=== PATIENT | female | born 1970 | race Caucasian/White ===

== ENCOUNTER 2019-07-25 08:31 | Day surgery (SDC) | payer BC ==
[~2019-07-25 08:31] MED LIST: AMOX500 PO; AMOX875 PO; CEPH500 PO; CODBUTACEC PO; CRUTCH4 UD; HYDACE5 PO; LOPE2C PO; NAPR500 PO; Norco 5-325 Ta1 EACH PO; OXYACE5T PO; Ultram50 MG PO; Zofran Odt4 MG SL; Zofran Odt8 MG SL
== END 2019-07-25 22:55 | disposition home or self-care (01) ==
LOC: MOI MAM 08:31 → MOI US 09:00 → MOI MAM 09:00
DX: N60.01 Solitary cyst of right breast (principal)
CPT/HCPCS: 19000; 76942; 88108

== ENCOUNTER 2021-05-14 12:16 | Day surgery (SDC) | payer BC ==
[~2021-05-14] VITALS: Ht 175.3 cm; Wt 109.2 kg
--- NOTE | 2021-05-14 12:38 | NUR ---
History, Chart, Medications and Allergies reviewed before start of procedure. Patient confirms NPO status and agrees with scheduled surgery. Reports taking all of colon prep with clear results.
[2021-05-14] MEDS ORDERED: VITAMIN D325 MC3 PO (12:46)
[2021-05-14] MEDS ORDERED: MULTIPLE VITAM1 EACH PO (12:47)
[2021-05-14] MEDS ORDERED: ZINC15 PO (12:47)
--- NOTE | 2021-05-14 13:27 | NUR ---
05/14/21 1327 Jodee Abreu History, Chart, Medications and Allergies reviewed before start of procedure. Patient confirms NPO status and agrees with scheduled surgery. 3-LEAD EKG REVIEWED WITH PHYSICIAN PRIOR TO START OF PROCEDURE. MONITOR INTACT WITH CONTINUOUS PULSE OXIMETRY AND INTERMITTENT BP. PATIENT DETERMINED TO BE ASA APPROPRIATE FOR PROPOFOL SEDATION PRIOR TO START OF PROCEDURE BY DR. JOHNSON.
--- NOTE | 2021-05-14 14:57 | NUR ---
Patient up to Ambulate independently. Gait steady. Discharge instructions reviewed with patient. Patient verbalizes understanding. Copy given to patient to take home. Discharged via wheelchair to private car for ride home WITH
== END 2021-05-14 22:35 | disposition home or self-care (01) ==
LOC: ORSCMMR 12:16 → ORD 14:15 → ORSCSDS 14:15 → ORSCMMR 14:15
PROVIDERS: Student in an Organized Health Care Education/Training Program
PROC: 0DBN8ZX Excision of Sigmoid Colon, Via Natural or Artificial Opening Endoscopic, Diagnostic (ICD-10-PCS; principal; 2021-05-14 13:15)
PROC: 0DBK8ZX Excision of Ascending Colon, Via Natural or Artificial Opening Endoscopic, Diagnostic (ICD-10-PCS; principal; 2021-05-14 13:15)
DX: Z12.11 Encounter for screening for malignant neoplasm of colon (principal); Z86.010 Personal history of colon polyps; D12.2 Benign neoplasm of ascending colon; K63.5 Polyp of colon; K62.1 Rectal polyp
CPT/HCPCS: 88305; J2704; J7120

== ENCOUNTER 2023-05-02 05:26 | Emergency (ER) | payer BC ==
[~2023-05-02] VITALS: Ht 175.3 cm; Wt 108.9 kg
[~2023-05-02 05:26] MED LIST changes: +MULTIPLE VITAM1 EACH PO; +VITAMIN D325 MC3 PO; +ZINC15 PO
[2023-05-02] MEDS ORDERED: Ketorolac Tromethamine 30mg Vial IV ONE (05:50)
[2023-05-02] MEDS ORDERED: Ondansetron HCl 2 MG / ML 2ML Vial IV ONE (05:50)
[2023-05-02] MEDS ORDERED: NS 1,000 ML IV SCH (05:50)
[2023-05-02 06:00] LABS: Source, Urine Clean Catch
[2023-05-02 06:05] LABS: Bilirubin, Urine Neg (Neg); Blood, Urine Neg (Neg); Glucose Qualitative, Urine Neg (Neg); Ketones, Urine Neg (Neg); Leukocyte Esterase, Urine Neg (Neg); Nitrite, Urine Neg (Neg); Protein, Urine Neg (Neg); Specific Gravity, Urine 1.015 (1.003-1.022); Urobilinogen, Urine NORM (Normal)
[2023-05-02 06:13] LABS: Appearance, Urine Clear (Clear); Color, Urine Yellow (P-Yellow)
[2023-05-02 06:23] LABS: BASOPHILS ABSOLUTE AUTO 0.04 K/mm3 (0.00-0.23); BASOPHILS PERCENT AUTO 1 % (0-2); EOSINOPHILS ABSOLUTE AUTO 0.11 K/mm3 (0.00-0.68); EOSINOPHILS PERCENT AUTO 2 % (0-6); Hematocrit 44.4 % (33.0-51.0); Hemoglobin 14.9 g/dL (11.5-16.0); IMMATURE GRAN ABSOLUTE AUTO 0.02 K/mm3 (0.00-0.10); IMMATURE GRAN PERCENT AUTO 0 % (0-1); LYMPHOCYTES ABSOLUTE AUTO 3.25 K/mm3 (0.84-5.20); LYMPHOCYTES PERCENT AUTO 43 % (21-46); MONOCYTES ABSOLUTE AUTO 0.49 K/mm3 (0.16-1.47); MONOCYTES PERCENT AUTO 7 % (4-13); Mean Corpuscular HGB 30.8 pg (26.0-34.0); Mean Corpuscular HGB Conc 33.6 g/dL (31.5-36.5); Mean Corpuscular Volume 92 fL (80-100); Mean Platelet Volume 10.7 fL (9.1-12.4); NEUTROPHILS ABSOLUTE AUTO 3.63 K/mm3 (1.96-9.15); NEUTROPHILS PERCENT AUTO 48 % (41-73); Platelet Count 244 K/mm3 (150-400); RDW Coefficient Variation 13.7 % (11.7-14.2); RDW Standard Deviation 46.6 fL (35.1-46.3); Red Blood Cell Count 4.83 M/mm3 (3.80-5.20); White Blood Cell Count 7.54 K/mm3 (4.00-11.30)
[2023-05-02 06:43] LABS: Albumin, Blood 3.7 g/dL (3.4-5.0); Albumin/Globulin Ratio 1.1 (0.8-1.8); Bilirubin, Total 0.6 mg/dL (0.1-1.0); Bun/Creatinine Ratio 18.4 (12.0-20.0); Calcium, Blood 9.1 mg/dL (8.5-10.1); Creatinine, Blood 0.76 mg/dL (0.40-1.00); Globulin, Blood 3.5 g/dL (2.2-4.0); Potassium, Blood 4.1 mmol/L (3.5-5.5); Total Protein, Blood 7.2 g/dL (6.4-8.2)
[2023-05-02] MEDS ORDERED: Acetaminophen 500 MG Tab PO ONE (06:55)
[2023-05-02] MEDS ORDERED: FentaNYL Citrate 50 MCG/ML 2 ML Injection IV ONE (07:05)
[2023-05-02] MEDS ORDERED: LIDO700A20 TOP (08:17)
[2023-05-02 09:00] VITALS: BP 133/92
== END 2023-05-02 09:27 | disposition home or self-care (01) ==
LOC: ER 05:26
PROVIDERS: Emergency Medicine
DX: R10.9 Unspecified abdominal pain (principal); F17.210 Nicotine dependence, cigarettes, uncomplicated; Z79.899 Other long term (current) drug therapy; Z88.5 Allergy status to narcotic agent; Z90.49 Acquired absence of other specified parts of digestive tract
CPT/HCPCS: 74176; 80053; 81003; 84484; 85025; 93005; 93010; 96361; 96374; 96375; 99284-25; A9270; J1885; J2405; J7030